=== PATIENT | male | born 1935 | race Caucasian/White ===

== ENCOUNTER 2019-08-12 09:17 | Observation (INO) | payer MEDICARE ==
--- NOTE | 2019-08-12 09:54 | ED ---
Shortness of Breath - HPI Summary HPI Summary: The pt is an 83 yr old [place] [facility] [place] and bilateral leg weakness beginning 2 days [employer]. He also mentions low O2 sat % and an increased heart rate. He notes that the shortness of breath began overnight and notes that he was lying in bed when it onset. He mentions that he has not felt these symptoms before. He is on blood thinners but does not take them often and he takes one baby aspirin every day. He rates his current pain severity a 0/10. No aggravating or alleviating factors noted. He also reports some weakness in his legs but denies any chest pain or dizziness. - History of Current Complaint Chief Complaint: EDShortnessOfBreath Time Seen by Provider: 08/12/19 09:32 Hx Obtained From: Patient, Family/Area Captain Onset/Duration: Sudden Onset, Lasting Days, Still Present Timing: Constant Current Severity: None Aggravating Factors: Nothing Alleviating Factors: Nothing Associated Signs & Symptoms: Negative - chest pain, dizziness - Allergy/Home Medications Allergies/Adverse Reactions: Allergies Allergy/AdvReac Type Severity Reaction Status Date / Time No Known Allergies Allergy Verified 08/12/19 09:27 Home Medications: Home Medications Aspirin 81 mg CHEW TAB* 81 mg PO DAILY 08/12/19 [History Confirmed 08/12/19] Atorvastatin Calcium [Lipitor] 40 mg PO DAILY 08/12/19 [History Confirmed ] Digoxin TAB* [Lanoxin TAB*] 0.125 mg PO DAILY 08/12/19 [History Confirmed ] Losartan Potassium [Cozaar] 50 mg PO BID 08/12/19 [History Confirmed 08/12/19] Magnesium Oxide [Magnesium] 250 mg PO DAILY 08/12/19 [History Confirmed 08/12/19 ] Metformin HCl [Metformin HCl ER] 500 mg PO DAILY 08/12/19 [History Confirmed ] Metoprolol Tartrate 25 mg PO BEDTIME 08/12/19 [History Confirmed 08/12/19] Metoprolol Tartrate 50 mg PO DAILY 08/12/19 [History Confirmed 08/12/19] Naproxen Sodium [Aleve] 220 mg PO DAILY 08/12/19 [History Confirmed 08/12/19] Potassium Chloride 20 meq PO DAILY 08/12/19 [History Confirmed 08/12/19] Warfarin Sodium 1 mg PO DAILY 08/12/19 [History Confirmed 08/12/19] Warfarin Sodium 3 mg PO SEE INSTRUCTIONS 08/12/19 [History Confirmed 08/12/19] PMH/Surg Hx/FS Hx/Imm Hx Sensory History: Denies: Hx Legally Blind, Hx Deafness Opthamlomology History: Denies: Hx Legally Blind EENT History: Denies: Hx Deafness - Surgical History Surgical History: None Surgery Procedure, Year, and Place: none Infectious Disease History: No Infectious Disease History: Denies: Traveled Outside the [place] in Last 30 Days - Family History Known Family History: Negative: Renal Disease Review of Systems Negative: Chest Pain Positive: Shortness Of Breath Neurological: Other - neg - dizziness Positive: Weakness - in legs All Other Systems Reviewed And Are Negative: Yes Physical Exam - Summary Physical Exam Summary: VITAL SIGNS: Reviewed. GENERAL: Patient is a well-developed and nourished male who is lying comfortable in the stretcher. Patient is not in any acute respiratory distress. HEAD AND FACE: No signs of trauma. No ecchymosis, hematomas or skull depressions. No sinus tenderness. EYES: PERRLA, EOMI x 2, No injected conjunctiva, no nystagmus. EARS: Hearing grossly intact. Ear canals and tympanic membranes are within normal limits. MOUTH: Oropharynx within normal limits. NECK: Supple, trachea is midline, no adenopathy, no JVD, no carotid bruit, no c- spine tenderness, neck with full ROM. CHEST: Symmetric, no tenderness at palpation. LUNGS: Crackles in both bases. CVS: Irregularly irregular rhythm, S1 and S2 present, no murmurs or gallops appreciated. ABDOMEN: Soft, non-tender. No signs of distention. No rebound, no guarding, and no masses palpated. Bowel sounds are normal. EXTREMITIES: FROM in all major joints, Bilateral lower extremity edema 1+, no cyanosis or clubbing. NEURO: Alert and oriented x 3. No acute neurological deficits. Speech is normal and follows commands. SKIN: Dry and warm. Triage Information Reviewed: Yes Vital Signs On Initial Exam: Initial Vitals Temp Pulse Resp BP Pulse Ox 97.5 F 93 18 149/101 92 08/12/19 09:24 08/12/19 09:24 08/12/19 09:24 08/12/19 09:24 08/12/19 09:24 Vital Signs Reviewed: Yes Procedures - Sedation Patient Received Moderate/Deep Sedation with Procedure: No Diagnostics - Vital Signs Vital Signs Temp Pulse Resp BP Pulse Ox 08/12/19 09:24 97.5 F 93 18 149/101 92 - Laboratory Result Diagrams: 08/13/19 04:47 08/13/19 04:47 Lab Statement: Any lab studies that have been ordered have been reviewed, and results considered in the medical decision making process. - Radiology CXR Radiology Interpretation Completed By: Radiologist Summary of Radiographic Findings: IMPRESSION: Cardiomegaly, interstitial edema and right pleural effusion suggestive of CHF. No prior study is available for comparison. - EKG 1021 Cardiac Rate: Other Rate - Afib EKG Rhythm: Atrial Fibrillation - 82 bpm Summary of EKG Findings: An EKG at 1021 reveals Afib @ 82 bpm and LBBB. Course/Dx - Course Assessment/Plan: This patient is a 83-year-old male who presents to the emergency department with a chief complaint of shortness of breath. Past medical history: Hypertension. Borderline diabetes. Dyslipidemia. Coronary artery disease. Patient is neurovascularly disease. Aortic stenosis. Valvular replacement on blood thinners. CXR impression: Cardiomegaly, interstitial edema and right pleural effusion suggestive of CHF. No prior study is available for comparison. Blood work without any significant abnormality except for a slight anemia, INR 2.86, glucose 166, alkaline phosphatase 112, troponin 0.04, CRP of 18.2, BNP 511. In the ED course the patient was given Lasix. I discuss my physical exam and test results with Dr. De La Rosa from the hospitalist services and he agrees to admit the patient to his services. The patient is hemodynamically stable alert and oriented x 3. - Diagnoses Provider Diagnoses: CHF (congestive heart failure), Elevated troponin, Chest pain, rule out acute myocardial infarction - Physician Notifications Discussed Care of Patient With: Tonia De La Rosa - Dr. De La Rosa will [place] the [place] [facility] [place] Time Discussed With Above Provider: 11:36 Discharge ED - Sign-Out/Discharge Documenting (check all that apply): Patient Departure - admit - Discharge Plan Condition: Stable Disposition: ADMITTED TO [facility] - Billing Disposition and Condition Condition: STABLE Disposition: Admitted to [facility] - Attestation Statements Document Initiated by Scribe: Yes Documenting Scribe: Clark Morgan Provider For Whom Scribe is Documenting (Include Credential): Maco Herr MD Scribe Attestation: I, Clark Morgan, scribed for Maco Herr MD on 08/15/19 at 0711. Scribe Documentation Reviewed: Yes Provider Attestation: The documentation as recorded by the scribe, Clark Morgan accurately reflects the service I personally performed and the decisions made by me, Maco Herr MD Status of Scribe Document: Viewed
[2019-08-12 10:55] LABS: ABS Eosinophils 0.1 10^3/ul (0-0.6); ABS Lymphocytes 0.6 10^3/ul (1.0-4.8); ABS Monocytes 0.9 10^3/ul (0-0.8); ABS Neutrophils 6.6 10^3/ul (1.5-7.7); Eosinophil % 0.7 %; Hematocrit 36 % (42-52); Hemoglobin 12.1 g/dL (14.0-18.0); Lymphocyte % 7.6 %; Mean Corpuscular HGB Conc 33 g/dL (31-36); Mean Corpuscular Hemoglobin 32 pg (27-31); Mean Corpuscular Volume 95 fL (80-94); Platelet Count 152 10^3/uL (150-450); Red Blood Count 3.84 10^6 /uL (4.18-5.48); Red Cell Distribution Width 15 % (10-15); White Blood Count 8.2 10^3/uL (3.5-10.8)
[2019-08-12 11:02] LABS: INR 2.86 (0.82-1.09)
[2019-08-12 11:12] LABS: ALT 33 U/L (7-52); AST 32 U/L (13-39); Albumin 3.5 g/dL (3.2-5.2); Albumin/Globulin Ratio 1.2 (1-3); Alkaline Phosphatase 112 U/L (34-104); Anion Gap 7 mmol/L (2-11); Blood Urea Nitrogen 19 mg/dL (6-24); C Reactive Protein 18.25 mg/L (<8.01); CO2 Carbon Dioxide 25 mmol/L (22-32); Calcium 9.3 mg/dL (8.6-10.3); Chloride 105 mmol/L (101-111); Creatine Kinase 46 U/L (10-223); EGFR African American 86.1 (>60); EGFR Non-African American 71.2 (>60); Glucose 166 mg/dL (70-100); Potassium 4.5 mmol/L (3.5-5.0); Sodium 137 mmol/L (135-145); Total Protein 6.5 g/dL (6.4-8.9)
[2019-08-12 11:16] LABS: CKMB ng/mL 1.8 ng/mL (0.6-6.3); Troponin I 0.04 ng/mL (<0.03)
[2019-08-12] MEDS ORDERED: Furosemide IV* 10 MG/ML 2 ML VIAL (20 MG) IV ONE (11:42)
[2019-08-12] MEDS ORDERED: Acetaminophen TAB* 325 MG PO PRN (12:24)
[2019-08-12] MEDS ORDERED: Al Hydrox/Mg Hydrox/Simet LIQ* 30 ML UDC PO PRN (12:24)
[2019-08-12] MEDS ORDERED: Warfarin TAB(*) 3 MG PO ONE (12:29)
[2019-08-12] MEDS ORDERED: Dextrose 50% VIAL 50 ml IV PUSH PRN (12:30)
[2019-08-12 14:29] LABS: Troponin I 0.05 ng/mL (<0.03)
--- NOTE | 2019-08-12 14:56 | HP ---
CC: Dr. Sona Arora, [place], [place] * HISTORY AND PHYSICAL: DATE OF ADMISSION: 08/12/19 PROVIDER: Yani Miller NP PRIMARY CARE PROVIDER: Dr. Sona Arora in [place], [place], phone number is [phone]. ATTENDING PHYSICIAN WHILE IN THE HOSPITAL: Dr. Tonia De La Rosa * (dictated by Yani Miller NP). CHIEF COMPLAINT: Shortness of breath. HISTORY OF PRESENT ILLNESS: Mr. Barnett is an 83-year-old male with a past medical history significant for enlarged heart, aortic valve replacement, history of diabetes, hyperlipidemia, hypertension, atrial fibrillation and glaucoma, who presented to the emergency room with complaints of progressively worsening shortness of breath. The patient does report that he flew here from [facility] and arrived on Friday. The patient reports that he was feeling off on Friday. He reports that last night his shortness of breath became progressively worse during the night. He does report that he was sleeping propped up on pillows, but no more than normal. He also reports increased swelling in his lower extremities. The patient does report that he stopped taking Lasix approximately 5 weeks ago on his own as he was traveling a lot and had to make too many frequent stops, so he stopped taking his Lasix. He does report that his primary care provider was aware of him stopping his Lasix dosing. He denies any fever, chills, or unintended weight loss. Denies any chest pain. He does report mild lower extremity edema. Denies any cough, hemoptysis. He does report shortness of breath, but denies any nocturnal dyspnea. Denies any nausea, vomiting, diarrhea, abdominal pain, hematuria, dysuria. Denies any focal weakness, visual complaints, dysphagia, arthralgias, myalgias, rashes, lesions, open sores, psychosis, or anxiety. While in the emergency room, the patient had routine lab work drawn. He was found to have a BNP of 511. He had a mildly elevated troponin at 0.04, elevated C- reactive protein of 18.25, and a chest x-ray that was consistent with congestive heart failure. Due to these findings, Hospital Medicine was asked to see and evaluate the patient for admission. PAST MEDICAL HISTORY: Significant for: 1. Enlarged heart. 2. 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 3. History of mitral valve surgery for benign lesion. 4. Diabetes type 2. 5. Hyperlipidemia. 6. Hypertension. 7. History of basal cell carcinoma removed from his left arm. 8. Atrial fibrillation. 9. Glaucoma. PAST SURGICAL HISTORY: 1. Mitral valve surgery for benign lesion removal. 2. Quadriceps tendon repair. 3. 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 4. Tonsillectomy. 5. Basal cell carcinoma removed from his left arm. HOME MEDICATIONS: Include: 1. Metformin 500 mg p.o. daily. 2. Atorvastatin 40 mg p.o. daily. 3. Digoxin 0.125 mg p.o. daily. 4. Furosemide 20 mg p.o. daily - has not taken in 5 weeks. 5. Losartan 50 mg p.o. b.i.d. 6. Potassium 20 mEq p.o. daily. 7. Coumadin 4 mg Friday, Friday and Friday, 3 mg Friday, Friday, , Friday. 8. Aspirin 81 mg p.o. daily. 9. Magnesium 250 mg p.o. daily. 10. Metoprolol tartrate 50 mg in the morning, 25 mg in p.m. FAMILY HISTORY: Father at the age of 55 due to an GA. Brother with a stroke and passed at the age of 82. No reported history of diabetes or cancer within the family. SOCIAL HISTORY: The patient reports that he quit smoking at the age of 26. Prior to that, he smoked a pack a day for approximately 10 years. He does report daily alcohol use of 4 ounces of whiskey daily. Denies any illicit drug use. He lives alone. He does have a house here in [place] which he will be residing in for the next couple months. Most of the time, he lives in the [facility]. Surrogate decision makers in the event he is unable to make his own decisions are his children. He is a full code. REVIEW OF SYSTEMS: A 14-point review of systems was completed. All pertinent positives were mentioned in the HPI. PHYSICAL EXAMINATION GENERAL: At this time, Mr. Barnett is an 83-year-old male. He is alert and oriented, resting on the stretcher in the emergency room. He is in no acute distress. VITAL SIGNS: Blood pressure 167/88, heart rate 90, respirations 19, O2 saturation 97%, temperature was 98.1. HEENT: Head is atraumatic, normocephalic. Eyes: EOMs are intact. Sclerae anicteric and not pale. Oral mucosa appeared to be moist. NECK: Supple. LUNGS: Diminished in the bases bilaterally with fine crackles. CARDIAC: S1, S2. He does have irregular rate with a click. No rubs or gallops. ABDOMEN: Soft and nontender. Bowel sounds are present x4. EXTREMITIES: He is able to move all 4 extremities. There is no clubbing or cyanosis. He does have +1 pitting edema to bilateral lower extremities. NEUROLOGIC: He is awake, alert, oriented x3. Speech is clear. Thought process is intact. There are no gross focal deficits. DIAGNOSTIC STUDIES/LAB DATA: WBCs are 8.2, RBCs 3.84, hemoglobin 12.1, hematocrit is 36, platelet count 152. INR 2.86. ABG; pH was 7.41, pCO2 was 34 , pO2 was 70, HCO3 was 22.9, O2 saturation 95.9%. Sodium 137, potassium 4.5, chloride 105, carbon dioxide was 25, anion gap of 7, BUN was 19, creatinine 1.00 , glucose was 166, lactic acid 1.4, calcium 9.3. ASTs were 32, ALTs were 33, alkaline phosphatase was 112. Troponin was 0.04, C-reactive protein was 18.25, BNP was 511, and digoxin level was 1.0. He did have a chest x-ray, radiologist's impression: Cardiomegaly, interstitial edema, right pleural effusion suggestive of congestive heart failure. He also had an electrocardiogram, which showed atrial fibrillation with left bundle branch block at a rate of 97. He does have T-wave inversions in I, II, III, V4, V5; peaked Ts in V1, V2, V3. There is no comparison EKG to compare. IMPRESSION AND PLAN: Mr. Barnett is an 83-year-old male with a past medical history significant for atrial fibrillation, status post aortic valve replacement; diabetes; hypertension; hyperlipidemia; and glaucoma, who presented to the emergency room with complaints of shortness of breath, found to have congestive heart failure. Our recommendations are as follows: 1. Shortness of breath. I suspect this is related to underlying congestive heart failure. Patient does report that he stopped taking his Lasix 5 weeks ago due to frequency of urination and travel. I will get a transthoracic echocardiogram. We will monitor him on telemetry overnight. He did receive Lasix 20 mg in the emergency room IV. We will give him another dose of Lasix this evening and and continue him on Lasix IV BID.. We will place him on daily weights and strict I's and O's. We will need to obtain records from his hot dip galvanizer in [place], Dr. Shashi Riley, his phone number is [phone], for comparisons of his echo and Ekg .unable to obtain record today due to holiday. Due to the patient recent travel here from [facility], pulmonary embolism was considered but I believe that this is low on the differential as the patient denies calf tenderness, pain with deep breath and is currently is on Coumadin with a therapeutic INR, who also recently stopped taking his Lasix. If his echo shows a significantly reduced ejection fraction i would consult cardiology. 2. Hypertension. He should continue on losartan and metoprolol as previously prescribed. 3. Hyperlipidemia. He should continue on atorvastatin as previously prescribed., 4. Elevated troponin. I suspect due to this is related to demand ischemia, due to his underlying congestive heart failure. We will continue to trend his troponins. We will monitor him on telemetry. The patient denies any chest pain during his episode. He is currently chest pain-free at this time. We will continue to monitor him for any episodes of chest pain. We will need to obtain old record from his hot dip galvanizer in [facility] Dr. Shashi Riley - [phone]. and Primary care doctor Sona Arora [phone]. Patient does have Afib with LBBB noted on today's EKG. No reports of chest pain, weakness or diaphoresis. Will continue with Coumadin, Aspirin, metoprolol and atorvastatin. repeat EKG in the AM. Should the patient develop chest pain will consult cardiology. 5. Diabetes Type II. I will place him on fingersticks a.c. with lispro sliding scale. We will hold his metformin. 6. Atrial fibrillation. The patient will continue on metoprolol as previously prescribed and digoxin. We will also continue on Coumadin alternating 3 and 4 mg as ordered. 7. FEN: He can have a heart-healthy, caffeine okay diet. 8. Code status: He is a full code. 9. DVT prophylaxis: He is on Coumadin with therapeutic INR. TIME SPENT: Time spent on this admission was 60 minutes, greater than half that time was spent at the bedside reviewing events leading thus far to his hospitalization, performing physical exam, and reviewing my plan of care. I have discussed this with my attending, Dr. Tonia De La Rosa; she is in agreement with my plan. YANI MILLER, [employer] [id number]/CPS #: [id number] DINORAH
[2019-08-12 16:24] LABS: Urine Appearance Clear; Urine Bilirubin Negative (Negative); Urine Blood 1+ (Negative); Urine Color Straw; Urine Glucose Negative (Negative); Urine Ketones Negative (Negative); Urine Nitrite Negative (Negative); Urine Protein Negative (Negative); Urine Specific Gravity 1.006 (1.010-1.030); Urine Urobilinogen Negative (Negative)
[2019-08-12 16:26] LABS: Urine Bacteria Absent (Absent); Urine Red Blood Cell Trace(0-2/hpf) (Absent); Urine White Blood Cell Absent (Absent)
[2019-08-12] MEDS: Insulin LISPRO* 1 UNITS UNIT SUBCUT SCH (16:59)
[2019-08-12] MEDS ORDERED: Warfarin TAB(*) 3 MG PO SCH (17:00)
[2019-08-12 17:12] LABS: Troponin I 0.05 ng/mL (<0.03)
[2019-08-12] MEDS ORDERED: Furosemide IV* 10 MG/ML VIAL (40 MG) IV SCH (18:00)
[2019-08-12] MEDS: Losartan TAB* 25 MG PO SCH (19:50)
[2019-08-12] MEDS ORDERED: Metoprolol Tartrate TAB* 25 MG PO SCH (21:00)
[2019-08-13 04:53] LABS: ABS Eosinophils 0.1 10^3/ul (0-0.6); ABS Lymphocytes 1.2 10^3/ul (1.0-4.8); ABS Neutrophils 4.7 10^3/ul (1.5-7.7); Eosinophil % 1.5 %; Hematocrit 33 % (42-52); Lymphocyte % 16.6 %; Mean Corpuscular HGB Conc 34 g/dL (31-36); Mean Corpuscular Hemoglobin 31 pg (27-31); Mean Corpuscular Volume 93 fL (80-94); Mean Platelet Volume 7.4 fL (7.4-10.4); Nucleated Red Blood Cells % 0.1; Platelet Count 138 10^3/uL (150-450); Red Blood Count 3.51 10^6 /uL (4.18-5.48); Red Cell Distribution Width 15 % (10-15)
[2019-08-13 04:59] LABS: INR 2.6 (0.82-1.09)
[2019-08-13 05:13] LABS: BUN/Creatinine Ratio 18.7 (8-20); Calcium 8.7 mg/dL (8.6-10.3); EGFR Non-African American 79.4 (>60); HDL Cholesterol 34.4 mg/dL; Potassium 3.8 mmol/L (3.5-5.0)
[2019-08-13] MEDS ORDERED: Furosemide IV* 10 MG/ML VIAL (40 MG) IV SCH ×2 (06:00→09:00)
[2019-08-13] MEDS ORDERED: Atorvastatin* 40 MG TAB PO SCH (09:00)
[2019-08-13] MEDS ORDERED: Aspirin 81 mg CHEW TAB* 81 MG TAB.CHEW PO SCH (09:00)
[2019-08-13] MEDS ORDERED: Potassium Chlor TAB* 20 MEQ TAB.ER PO SCH (09:00)
[2019-08-13] MEDS ORDERED: Digoxin TAB* 0.125 MG PO SCH (09:00)
[2019-08-13] MEDS ORDERED: Metoprolol Tartrate TAB* 50 mg PO SCH (09:00)
[2019-08-13] MEDS: Losartan TAB* 25 MG PO SCH (09:06)
[2019-08-13] MEDS: Insulin LISPRO* 1 UNITS UNIT SUBCUT SCH (09:07)
[2019-08-13 09:13] VITALS: BP 143/69
--- NOTE | 2019-08-13 10:28 | ECHO ---
*[facility]* [place] [address] Fax #: [phone] Transthoracic Echocardiogram Patient: Hamilton Barnett : 1935 Study Date: 08/13/2019 Age: 83 Gender: M HR: 70 bpm Height: 70 in /177.8 cm BSA: 2.04 m^2 Weight: 188.6 lb /85.7 kg BMI: 27.1 kg/m^2 *Energy Conservation Director: * Dena Zamora RDCS RN *Referring Physician: * Yani Miller *Reading Physician: * Michael Sanchez MD Indications: Congestive Heart Failure. SOB. Edema. History: Coronary artery disease. Aortic stenosis. Risk factors: Hypertension. Diabetes mellitus. Dyslipidemia. Labs, prior tests, procedures, and surgery: Aortic valve replacement with a St[employer] Narciso mechanical valve. Removal of benign lesion from mitral valve. Conclusions Summary: - Left ventricle: The cavity size is normal. Wall thickness is mildly to moderately increased. Systolic function is normal. The estimated ejection fraction is 50-55%. Wall motion is normal; there are no regional wall motion abnormalities.Intermittent distal apico-septal paradoxical wall motion is seen which may be related to LBBB and/or prior cardiac surgery. - Left atrium: The atrium is moderately to severely dilated. - Right atrium: The atrium is moderately to severely dilated. - Aortic valve: There is a normally functioning mechanical aortic prosthetic valve. - There is no prior echocardiogram available to compare with at this time. Study data: Transthoracic echocardiogram. Procedure: Transthoracic echocardiography was performed. Image quality was fair. Complete 2D, spectral Doppler, and color flow Doppler. Location: Bedside. Patient status: Observation. Patient room number: 438. Rhythm: Atrial fibrillation. LBBB. Findings Left ventricle: The cavity size is normal. Wall thickness is mildly to moderately increased. Systolic function is normal. The estimated ejection fraction is 50-55%. Wall motion is normal; there are no regional wall motion abnormalities.Intermittent distal apico-septal paradoxical wall motion is seen which may be related to LBBB and/or prior cardiac surgery. Left ventricular diastolic function parameters are indeterminate. Right ventricle: The cavity size is normal. Systolic function is normal. Ventricular septum: Ventricular septal wall motion has a postoperative appearance. The interventricular septum appears dyssynchronous in the presence of LBBB. Left atrium: The atrium is moderately to severely dilated. Right atrium: The atrium is moderately to severely dilated. Mitral valve: The mitral valve annulus appears calcified with prominent focal posterior calcification. The leaflets are mildly thickened. There is no evidence of stenosis. There is mild to moderate regurgitation. Aortic valve: Not well visualized. There is a normally functioning mechanical aortic prosthetic valve. There is trace regurgitation and no significant stenosis. There is trace to mild regurgitation. Tricuspid valve: Not well visualized. There is trace to mild regurgitation. Pulmonic valve: The valve is structurally normal. There is no evidence of stenosis. There is no significant regurgitation. Aorta: Aortic root: The aortic root is not dilated. Ascending aorta: The ascending aorta is not dilated. Pericardium: There is no pericardial effusion. Pulmonary arteries: Not well visualized. Systolic pressure can not be accurately estimated. Systemic veins: Inferior vena cava: The vessel is normal in size. There is (>= 50%) respiratory change in the IVC dimension. Measurements Left ventricle Value Ref Right atrium Value Ref BANDAR, LAX 4.6 cm 4.2 - 5.8 ML dim, ES, A4C (H) 4.7 cm 2.6 - 4.4 ESD, LAX 3.4 cm 2.5 - 4.0 SI dim, ES, A4C (H) 6.3 cm 3.4 - 5.3 FS, LAX 25 % 25 - 43 SI dim/bsa, ES, A4C (H) 3.1 cm/m^2 1.8 - 3.0 PW, ED, LAX (H) 1.2 cm 0.6 - 1.0 Estimated RAP 3 mm Hg --------- PW, ED (H) 1.2 cm 0.6 - 1.0 IVS/PW, ED 1.21 Aortic valve Value Ref E', lat brody, TDI 11.6 cm/sec >=10.0 Brody diam, ED 2.0 cm - -------- E/e', lat brody, 13 Brody diam/bsa, ED 1.0 cm/m^2 ---- ----- TDI Peak v, S 2.43 m/sec --------- E', med brody, TDI (L) 4.6 cm/sec >=7.0 VTI, S 43.0 cm - -------- E/e', med brody, 32 Mean grad, S 19.0 mm Hg ---- ----- TDI Peak grad, S 24.0 mm Hg --------- E', avg, TDI 8.1 cm/sec LVOT/AV, VTI ratio 0.32 ---- ----- E/e', avg, TDI (H) 18 <=14 LOLA, VTI 1.00 cm^2 - -------- LOLA, Vmax 1.11 cm^2 --------- LVOT Value Ref Diam, S 2.00 cm Mitral valve Value Ref Area 3.1 cm^2 Peak E 1.49 m/sec --------- Peak lashell, S 0.86 m/sec Decel time 227 ms --------- VTI, S 13.7 cm PHT 31 ms --------- Mean grad, S 2 mm Hg Mean grad, D 3.0 mm Hg --------- SV 43 ml Peak grad, D 10.0 mm Hg --------- SV/bsa 21 ml/m^2 MVA, PHT 3.0 cm^2 --------- Ventricular septum Value Ref Pulmonic valve Value Ref IVS, ED (H) 1.5 cm 0.6 - 1.0 Peak v, S 0.86 m/sec --------- Peak grad, S 3.0 mm Hg --------- Right ventricle Value Ref BANDAR, LAX 2.7 cm Aortic root Value Ref BANDAR minor ax, 3.1 cm 1.9 - 3.5 Root diam 2.9 cm <4.2 A4C mid Ascending aorta Value Ref Left atrium Value Ref AAo AP diam, S 2.7 cm --------- AP dim, ES (H) 4.10 cm 3.00 - 4.00 Inferior vena cava Value Ref ML dim, A4C 4.8 cm Diam 1.7 cm --------- SI dim, A4C 6.5 cm Vol/bsa, ES, 1-p (H) 43 ml/m^2 12 - 37 A4C Vol/bsa, ES, A/L (H) 69 ml/m^2 16 - 34 Legend: (L) and (H) lia values outside specified reference range. Prepared and electronically signed by Michael Sanchez MD 08/13/2019 10:28
[2019-08-13] MEDS ORDERED: Warfarin TAB(*) 1 MG PO SCH (17:00)
--- NOTE | 2019-08-13 18:20 | DS ---
CC: Dr. Sona Arora, [place], [place], phone number [phone]; [facility] * CC: Dr. Shashi Riley, [place], phone number [phone] * DISCHARGE SUMMARY: DATE OF ADMISSION: 08/12/19 DATE OF DISCHARGE: 08/13/19 ATTENDING PROVIDER: Pramod Guerrero MD * (DICTATED BY FABIOLA DOBBINS) PRIMARY CARE PROVIDER: Dr. Sona Arora in [place], [place], phone number [phone]. PRIMARY DISCHARGE DIAGNOSIS: Heart failure with preserved ejection fraction exacerbation. SECONDARY DISCHARGE DIAGNOSES: 1. Atrial fibrillation. 2. Hypertension. 3. Hyperlipidemia. 4. History of aortic valve replacement. 5. Diabetes mellitus type 2. 6. Glaucoma. 7. History of basal cell carcinoma. STUDIES DONE WHILE IN THE HOSPITAL: Chest x-ray from 08/12/19 read as cardiomegaly, interstitial edema, right pleural effusion consistent with CHF. Transthoracic echocardiogram read as left ventricular chamber size is normal. Wall thickness is mild to moderately increased. Systolic function is normal. Estimated ejection fraction is 50% to 55%. Intermittent distal apical septal paradoxical wall motion is seen, which may be related to left bundle branch block or prior cardiac surgery. Left atrium and right atrium are moderately to severely dilated. Aortic valve is a normally functioning mechanical aortic valve. Right ventricular systolic and pulmonary artery pressures are within normal limits. Electrocardiogram shows left bundle branch block. No ST segment elevation or depression. No hypertrophy or enlargement. Atrial fibrillation, rate of 88, QTc of 453. Two repeat EKGs showed no significant changes. MEDICATIONS AT DISCHARGE: 1. Digoxin 0.125 mg p.o. daily. 2. Warfarin 3 mg p.o. Friday, Friday, , Friday. 3. Warfarin 4 mg p.o. Friday, Friday, Friday. 4. Potassium chloride 20 mEq p.o. daily. 5. Naproxen 220 mg p.o. daily. 6. Metoprolol tartrate 50 mg p.o. daily. 7. Metformin 500 mg p.o. daily. 8. Magnesium oxide 250 mg p.o. daily. 9. Losartan 50 mg p.o. b.i.d. 10. Atorvastatin 40 mg p.o. daily. 11. Aspirin 81 mg p.o. daily. 12. Metoprolol tartrate 25 mg p.o. at bedtime. 13. Torsemide 10 mg p.o. daily. New medication at discharge: Torsemide 10 mg p.o. daily. Medication discontinued at discharge: Furosemide 20 mg p.o. daily. HOSPITAL COURSE: This is a brief summary of the patient's presentation. For more details, please see the history and physical from Yani Miller NP, on 08/12/19. In brief, the patient is an 83-year-old male with past medical history significant for the above, who follows routinely with a vehicle safety inspector and primary care doctor in [facility], but recently flew 5 days ago from [facility] and had stopped his diuretics approximately 3 weeks ago due to frequent urination which was bothersome to him. The patient began to have 2 days prior to admission worsening shortness of breath and feeling of being off. He also had increased swelling in his legs. The patient in the emergency department had studies as above showing concern for CHF. He also had a slightly elevated troponin, a significantly elevated BNP at 511. There was no concern that the patient was having an acute coronary syndrome. He was diagnosed with acute CHF exacerbation and was admitted to the hospital. The patient was diuresed with IV Lasix. The patient only put out approximately 1 L of urine. However, he was initially requiring 3 L of oxygen to keep his oxygen saturation above 90% and this was able to be weaned off on the first day of his hospitalization. The patient had a transthoracic echocardiogram as above, which was consistent with the patient's understanding of what his echocardiogram looked like, although there were no previous records to be compared. The patient's troponin peaked at 0.05 and remained stable there. The patient had a lipid profile, which showed LDL cholesterol of 73 and was already on high-intensity statin therapy. The patient's heart rate was well controlled while in the hospital on his current medications of digoxin and metoprolol. The patient felt much better on the second day of hospitalization, was able to ambulate around the unit without any oxygen, felt as if the swelling has likely decreased and was stable, anxious and amenable for discharge on 08/13/19. PHYSICAL EXAM ON THE DAY OF DISCHARGE: General: The patient is an 83-year-old male, who appears stated age and sitting comfortably in bed, in no acute distress. Vital Signs: At the time of evaluation, temperature 98.6, pulse rate 65, respiratory rate 18, oxygen saturation 97% on room air, blood pressure 143/ 69. HEENT: Head normocephalic, atraumatic. Sclerae anicteric. No conjunctival injection. Nasal mucosa moist. Oral mucosa moist. No pharyngeal erythema, discharge, or exudate. Neck: Supple, nontender. No lymphadenopathy. No carotid bruits auscultated. No JVD. Cardiac: Irregularly irregular rhythm. Grade 3/6 systolic ejection murmur heard in the right upper sternal border. No other adventitious breath sounds. Pulses are 2 + in the bilateral dorsalis pedis, posterior tibialis, and radial areas. 1+ pitting edema in the left lower extremity, 2+ in the right lower extremity. No bilateral calf tenderness or palpable cords. Respiratory: Clear to auscultation bilaterally. No wheezes, rales, or rhonchi. Good air exchange. Abdomen: Soft, nontender, nondistended. Bowel sounds present and normoactive in all 4 quadrants. No hepatosplenomegaly. No abdominal bruits auscultated. No hepatojugular reflux. Genitourinary: No suprapubic or CVA tenderness. Skin : Clean, dry, and intact. No rash. Neuro: Cranial nerves II through XII intact. No focal deficits. Alert and oriented x3. Psychiatric: Pleasant and cooperative. DISCHARGE PLAN BY PROBLEM: 1. Acute on chronic heart failure with preserved ejection fraction. The patient had a mild CHF exacerbation and was admitted to the hospital, received 3 doses of IV Lasix and felt as if he had returned to his baseline. The patient will be continued on his previous dose of oral diuretic; however, the patient will be transitioned from Lasix to torsemide due to longer half-life may cause less upfront urinary frequency than Lasix does; however, this should be reassessed with his primary care provider and if this does not improve his symptoms, other strategies should be pursued if possible. The patient's EF was 50% to 55% on his echocardiogram and his valve appears to be functioning well. The patient should follow routinely with his vehicle safety inspector for this. The patient should return to the hospital for severe shortness of breath, chest pain , passing out, or other alarming symptoms. 2. Atrial fibrillation. The patient is currently rate controlled on digoxin and metoprolol. The patient will be continued on these medications. The patient is currently therapeutic on his Coumadin. 3. Hyperlipidemia. Continue the patient's Lipitor. The patient's LDL is currently 73. Continue the patient's aspirin for primary prevention. 4. Hypertension. Continue the patient's metoprolol, losartan, torsemide. CONDITION: Stable. DIET: Heart-healthy, caffeine okay. ACTIVITY: As tolerated. DISPOSITION: Home. TIME SPENT: Approximately 60 minutes was spent on the discharge of this patient , 30 of which was spent [id number] with the patient obtaining history and physical and discussing treatment plan. FABIOLA DOBBINS [id number]/[facility] #: [id number] DINORAH
== END 2019-08-13 11:59 | disposition home or self-care (01) ==
LOC: ED 09:17 → MEDTELE 12:24
PROVIDERS: ADMIT Internal Medicine; ATTEND Internal Medicine
DX: I11.0 Hypertensive heart disease with heart failure (principal); I50.30 Unspecified diastolic (congestive) heart failure; I48.91 Unspecified atrial fibrillation; E78.5 Hyperlipidemia, unspecified; Z95.4 Presence of other heart-valve replacement; E11.9 Type 2 diabetes mellitus without complications; H40.9 Unspecified glaucoma; Z85.828 Personal history of other malignant neoplasm of skin; Z79.899 Other long term (current) drug therapy; Z79.01 Long term (current) use of anticoagulants; Z79.82 Long term (current) use of aspirin; R06.02 Shortness of breath; Z87.891 Personal history of nicotine dependence
CPT/HCPCS: 36415; 71046; 80048; 80053; 80061; 80162; 81003; 81015; 82550; 82553; 82803; 83605; 83880; 84484; 85025; 85610; 85730; 86140; 87040; 93005; 93306; 96374; 96376; 99284; A9270-GY; G0378; J1940

== ENCOUNTER 2021-02-08 10:11 | Inpatient (IN) ==
[2021-02-08] MEDS ORDERED: Famotidine IV 10 MG/ML 2 ml VIAL (20 mg) IV SLOW PU ONE (10:56)
[2021-02-08 11:53] LABS: ABS Lymphocytes 0.5 10^3/ul (1.0-4.8); ABS Monocytes 1.1 10^3/ul (0-0.8); ABS Neutrophils 13.2 10^3/ul (1.5-7.7); Hematocrit 46 % (42-52); Hemoglobin 14.6 g/dL (14.0-18.0); Lymphocyte % 3.7 %; Mean Corpuscular HGB Conc 32 g/dL (31-36); Mean Corpuscular Hemoglobin 31 pg (27-31); Mean Corpuscular Volume 98 fL (80-94); Mean Platelet Volume 9.8 fL (7.4-10.4); Platelet Count 138 10^3/uL (150-450); Red Blood Count 4.67 10^6 /uL (4.18-5.48); Red Cell Distribution Width 17 % (10-15); White Blood Count 14.9 10^3/uL (3.5-10.8)
[2021-02-08 12:04] LABS: Activated Partial Thrombo Time 37.2 seconds (26.0-38.0); INR 3.71 (0.82-1.09)
[2021-02-08 12:11] LABS: ALT 55 U/L (7-52); AST 53 U/L (13-39); Albumin/Globulin Ratio 1.3 (1-3); Alkaline Phosphatase 147 U/L (35-149); Anion Gap 10 mmol/L (2-11); Blood Urea Nitrogen 65 mg/dL (6-24); CO2 Carbon Dioxide 25 mmol/L (22-32); Calcium 9.9 mg/dL (8.6-10.3); Chloride 104 mmol/L (101-111); Creatine Kinase 281 U/L (10-223); EGFR African American 49.1 (>60); EGFR Non-African American 40.6 (>60); Glucose 159 mg/dL (70-100); Magnesium 2.7 mg/dL (1.9-2.7); Sodium 139 mmol/L (135-145)
[2021-02-08 12:14] LABS: Troponin I 0.08 ng/mL (<0.03)
[2021-02-08 12:49] LABS: TSH Ultra Thyroid Stim Horm 2.93 mcIU/mL (0.34-5.60)
[2021-02-08] MEDS ORDERED: Ondansetron 4 mg VIAL 2 MG/ML 2 ml VIAL IV PRN (14:10)
[2021-02-08] MEDS ORDERED: Al Hydrox/Mg Hydrox/Simet LIQ 30 ML UDC PO PRN (14:10)
[2021-02-08] MEDS ORDERED: Warfarin per PHARMACY **NOTE FOLLOW UP SCH (15:00)
[2021-02-08] MEDS ORDERED: Warfarin - No Order Today **NOTE FOLLOW UP ONE (16:00)
[2021-02-08] MEDS: Empaglifozin 10 mg TAB (NF) PO SCH (19:33)
[2021-02-08 20:41] LABS: Troponin I 0.13 ng/mL (<0.03)
[2021-02-08] MEDS ORDERED: Lorazepam PYXIS KEY PRN (23:24)
[2021-02-09 02:31] LABS: Troponin I 0.13 ng/mL (<0.03)
[2021-02-09 05:36] LABS: ABS Lymphocytes 0.9 10^3/ul (1.0-4.8); ABS Monocytes 0.8 10^3/ul (0-0.8); ABS Neutrophils 7.7 10^3/ul (1.5-7.7); Hematocrit 42 % (42-52); Hemoglobin 13.6 g/dL (14.0-18.0); Lymphocyte % 9.7 %; Mean Corpuscular HGB Conc 33 g/dL (31-36); Mean Corpuscular Hemoglobin 32 pg (27-31); Mean Corpuscular Volume 97 fL (80-94); Mean Platelet Volume 10.1 fL (7.4-10.4); Nucleated Red Blood Cells % 0.1; Platelet Count 113 10^3/uL (150-450); Red Blood Count 4.29 10^6 /uL (4.18-5.48); Red Cell Distribution Width 17 % (10-15); White Blood Count 9.4 10^3/uL (3.5-10.8)
[2021-02-09 05:48] LABS: INR 3.91 (0.82-1.09)
[2021-02-09] MEDS: Cholecalciferol (VIT D3) 1,000 unit TAB PO SCH (08:58)
[2021-02-09] MEDS: Empaglifozin 10 mg TAB (NF) PO SCH (08:59)
[2021-02-09 12:02] LABS: Hematocrit 42 % (42-52); Hemoglobin 13.8 g/dL (14.0-18.0); Mean Corpuscular HGB Conc 33 g/dL (31-36); Mean Corpuscular Hemoglobin 32 pg (27-31); Mean Corpuscular Volume 96 fL (80-94); Mean Platelet Volume 10.1 fL (7.4-10.4); Platelet Count 125 10^3/uL (150-450); Red Blood Count 4.35 10^6 /uL (4.18-5.48); Red Cell Distribution Width 17 % (10-15); White Blood Count 10.4 10^3/uL (3.5-10.8)
[2021-02-09 12:23] LABS: Anion Gap 9 mmol/L (2-11); CO2 Carbon Dioxide 23 mmol/L (22-32); Calcium 9.3 mg/dL (8.6-10.3); Chloride 105 mmol/L (101-111); Potassium 4.9 mmol/L (3.5-5.0); Sodium 137 mmol/L (135-145)
[2021-02-09 12:29] LABS: Blood Urea Nitrogen 65 mg/dL (6-24); EGFR African American 49.8 (>60); EGFR Non-African American 41.2 (>60); Glucose 202 mg/dL (70-100)
[2021-02-09 12:51] LABS: Troponin I 0.12 ng/mL (<0.03)
[2021-02-09] MEDS ORDERED: Thiamine 100 MG/ML 2 ml VIAL 100 MG, Folic Acid IV 1 MG, Multiple Vitamin IV ADULT 10 M... IV ONE (16:00)
[2021-02-09] MEDS ORDERED: Warfarin - No Order Today **NOTE FOLLOW UP ONE (17:00)
[2021-02-09] MEDS ORDERED: Furosemide 20 mg/2 ml IV VIAL IV ONE (19:11)
[2021-02-09 23:06] LABS: Urine Appearance Clear; Urine Bilirubin Negative (Negative); Urine Blood 1+ (Negative); Urine Color Yellow; Urine Glucose 3+(>=500 mg/dL) (Negative); Urine Ketones Negative (Negative); Urine Nitrite Negative (Negative); Urine Protein 2+(100 mg/dL) (Negative); Urine Urobilinogen Negative (Negative)
[2021-02-09 23:16] LABS: Urine Bacteria Absent (Absent); Urine Red Blood Cell Trace(0-2/hpf) (Absent); Urine Squamous Epithelial Cell Present (Absent); Urine White Blood Cell Trace(0-5/hpf) (Absent)
[2021-02-09] MEDS: LORazepam 2 mg VIAL 1 ml IV PUSH PRN (23:37)
[2021-02-10] MEDS: LORazepam 2 mg VIAL 1 ml IV PUSH PRN (05:58)
[2021-02-10 06:34] LABS: Hematocrit 43 % (42-52); Hemoglobin 14.1 g/dL (14.0-18.0); Mean Corpuscular HGB Conc 33 g/dL (31-36); Mean Corpuscular Hemoglobin 32 pg (27-31); Mean Corpuscular Volume 97 fL (80-94); Mean Platelet Volume 10.9 fL (7.4-10.4); Platelet Count 119 10^3/uL (150-450); Red Blood Count 4.45 10^6 /uL (4.18-5.48); Red Cell Distribution Width 17 % (10-15); White Blood Count 10.1 10^3/uL (3.5-10.8)
[2021-02-10 06:35] LABS: INR 3.85 (0.82-1.09)
[2021-02-10 06:49] LABS: Calcium 9.3 mg/dL (8.6-10.3); EGFR African American 43.5 (>60); Potassium 4.6 mmol/L (3.5-5.0)
[2021-02-10] MEDS ORDERED: Furosemide 40 mg/4 ml IV VIAL IV ONE (09:01)
[2021-02-10] MEDS: Multivitamins/Minerals TAB PO SCH (10:38)
[2021-02-10] MEDS: Cholecalciferol (VIT D3) 1,000 unit TAB PO SCH (10:38)
[2021-02-10] MEDS: Empaglifozin 10 mg TAB (NF) PO SCH (11:51)
[2021-02-10] MEDS ORDERED: Piperacillin/Tazobac ADVAN 3.375 GM in NS 0.9% 100 ml BAG 100 ML IV ONE (15:05)
[2021-02-10] MEDS ORDERED: Zosyn per Pharmacy NOTE FOLLOW UP SCH (16:00)
[2021-02-10] MEDS: Thiamine 100 MG/ML 2 ml VIAL 250 MG in NS 0.9% 100 ml BAG 100 ML IV SCH (16:17)
[2021-02-10 16:49] LABS: Calcium 9.3 mg/dL (8.6-10.3); EGFR African American 39.9 (>60); Magnesium 2.8 mg/dL (1.9-2.7); Phosphorus 5.5 mg/dL (2.5-5.0)
[2021-02-10 16:54] LABS: Potassium 5.1 mmol/L (3.5-5.0)
[2021-02-10] MEDS ORDERED: Warfarin - No Order Today **NOTE FOLLOW UP ONE (18:00)
[2021-02-10] MEDS: ZOSYN 3.375 GM Q8H per EXTENDED INFUSION IV SCH (21:06)
[2021-02-11 04:33] LABS: INR 2.57 (0.82-1.09)
[2021-02-11 04:42] LABS: Calcium 8.6 mg/dL (8.6-10.3); EGFR Non-African American 30.6 (>60); Magnesium 2.6 mg/dL (1.9-2.7); Potassium 4.7 mmol/L (3.5-5.0)
[2021-02-11 05:10] LABS: ABS Lymphocytes 0.5 10^3/ul (1.0-4.8); ABS Monocytes 0.9 10^3/ul (0-0.8); ABS Neutrophils 7.8 10^3/ul (1.5-7.7); Hematocrit 38 % (42-52); Hemoglobin 12.8 g/dL (14.0-18.0); Lymphocyte % 5.7 %; Mean Corpuscular HGB Conc 33 g/dL (31-36); Mean Corpuscular Hemoglobin 32 pg (27-31); Mean Corpuscular Volume 98 fL (80-94); Nucleated Red Blood Cells % 0.1; Platelet Count 85 10^3/uL (150-450); Red Blood Count 3.94 10^6 /uL (4.18-5.48); Red Cell Distribution Width 17 % (10-15); White Blood Count 9.1 10^3/uL (3.5-10.8)
[2021-02-11] MEDS: ZOSYN 3.375 GM Q8H per EXTENDED INFUSION IV SCH ×3 (05:17→20:12)
[2021-02-11] MEDS: Pantoprazole VIAL 40 MG VIAL IV SCH (08:20)
[2021-02-11] MEDS: Multivitamins/Minerals TAB PO SCH (08:20)
[2021-02-11 08:48] LABS: Phosphorus 5.8 mg/dL (2.5-5.0)
[2021-02-11] MEDS ORDERED: Lactated Ringers 1000 ml BAG 1,000 ML IV SCH (12:00)
[2021-02-11 14:56] LABS: Albumin/Globulin Ratio 1.3 (1-3); Globulin 2.3 g/dL (2-4); Indirect Bilirubin 0.9 mg/dL (0.3-1.0); Total Bilirubin 1.4 mg/dL (0.2-1.0); Total Protein 5.3 g/dL (6.4-8.9)
[2021-02-11] MEDS: Warfarin DAILY REMINDER **NOTE FOLLOW UP SCH (16:13)
[2021-02-11] MEDS: Thiamine 100 MG/ML 2 ml VIAL 250 MG in NS 0.9% 100 ml BAG 100 ML IV SCH (16:13)
[2021-02-12] MEDS: ZOSYN 3.375 GM Q8H per EXTENDED INFUSION IV SCH ×3 (04:38→20:40)
[2021-02-12 06:32] LABS: Hematocrit 36 % (42-52); Hemoglobin 11.7 g/dL (14.0-18.0); Mean Corpuscular HGB Conc 33 g/dL (31-36); Mean Corpuscular Hemoglobin 32 pg (27-31); Mean Corpuscular Volume 97 fL (80-94); Mean Platelet Volume 9.9 fL (7.4-10.4); Platelet Count 84 10^3/uL (150-450); Red Blood Count 3.67 10^6 /uL (4.18-5.48); Red Cell Distribution Width 17 % (10-15); White Blood Count 7.7 10^3/uL (3.5-10.8)
[2021-02-12 06:47] LABS: Albumin 3.1 g/dL (3.2-5.2); Albumin/Globulin Ratio 1.4 (1-3); Calcium 8.5 mg/dL (8.6-10.3); EGFR African American 42.7 (>60); EGFR Non-African American 35.3 (>60); Globulin 2.2 g/dL (2-4); Magnesium 2.5 mg/dL (1.9-2.7); Phosphorus 3.1 mg/dL (2.5-5.0); Potassium 4.1 mmol/L (3.5-5.0); Total Bilirubin 1.4 mg/dL (0.2-1.0); Total Protein 5.3 g/dL (6.4-8.9)
[2021-02-12] MEDS: Multivitamins/Minerals TAB PO SCH (08:23)
[2021-02-12] MEDS: Pantoprazole VIAL 40 MG VIAL IV SCH (09:15)
[2021-02-12] MEDS: Thiamine 100 MG/ML 2 ml VIAL 250 MG in NS 0.9% 100 ml BAG 100 ML IV SCH (16:07)
[2021-02-12] MEDS ORDERED: Warfarin - No Order Today **NOTE FOLLOW UP ONE (17:00)
[2021-02-12] MEDS: Warfarin DAILY REMINDER **NOTE FOLLOW UP SCH (17:04)
[2021-02-13] MEDS: ZOSYN 3.375 GM Q8H per EXTENDED INFUSION IV SCH ×2 (05:16→11:41)
[2021-02-13 05:45] LABS: INR 3.99 (0.82-1.09)
[2021-02-13 07:39] LABS: ABS Lymphocytes 0.5 10^3/ul (1.0-4.8); ABS Monocytes 0.7 10^3/ul (0-0.8); ABS Neutrophils 5.4 10^3/ul (1.5-7.7); Eosinophil % 0.4 %; Hematocrit 36 % (42-52); Lymphocyte % 7.1 %; Mean Corpuscular HGB Conc 33 g/dL (31-36); Mean Corpuscular Hemoglobin 32 pg (27-31); Mean Corpuscular Volume 97 fL (80-94); Mean Platelet Volume 9.3 fL (7.4-10.4); Nucleated Red Blood Cells % 0.1; Platelet Count 85 10^3/uL (150-450); Red Blood Count 3.73 10^6 /uL (4.18-5.48); Red Cell Distribution Width 17 % (10-15); White Blood Count 6.6 10^3/uL (3.5-10.8)
[2021-02-13 07:52] LABS: Albumin 3.2 g/dL (3.2-5.2); Albumin/Globulin Ratio 1.3 (1-3); Calcium 8.7 mg/dL (8.6-10.3); EGFR African American 53.7 (>60); EGFR Non-African American 44.4 (>60); Globulin 2.5 g/dL (2-4); Magnesium 2.3 mg/dL (1.9-2.7); Total Bilirubin 1.5 mg/dL (0.2-1.0); Total Protein 5.7 g/dL (6.4-8.9)
[2021-02-13] MEDS: Multivitamins/Minerals TAB PO SCH (08:06)
[2021-02-13 08:56] LABS: Phosphorus 2.6 mg/dL (2.5-5.0)
[2021-02-13] MEDS ORDERED: DOBUTamine 2000 MCG/ML IVPREMX 500 MG/250 ML BAG IV SCH (10:00)
[2021-02-13] MEDS ORDERED: Digoxin IV 0.5 MG/2 ML AMP (0.25 MG/ML) IV SLOW PU ONE (10:23)
[2021-02-13] MEDS: Thiamine 100 MG/ML 2 ml VIAL 250 MG in NS 0.9% 100 ml BAG 100 ML IV SCH (15:25)
[2021-02-13] MEDS ORDERED: Warfarin DAILY REMINDER **NOTE FOLLOW UP SCH (17:00)
[2021-02-13] MEDS ORDERED: Warfarin - No Order Today **NOTE FOLLOW UP ONE ×2 (17:00)
[2021-02-13 18:35] VITALS: BP 98/76
[2021-02-13] MEDS ORDERED: LORazepam 2 mg VIAL 1 ml ONE (19:53)
[2021-02-13] MEDS ORDERED: Lorazepam PYXIS KEY ONE (19:53)
[2021-02-13] MEDS ORDERED: Lorazepam PYXIS KEY PRN (20:07)
[2021-02-13] MEDS ORDERED: LORazepam 2 mg VIAL 1 ml IV PUSH PRN (20:07)
[2021-02-14] MEDS ORDERED: Lorazepam PYXIS KEY ONE (00:56)
== END 2021-02-13 19:50 | disposition short-term general hospital (02) | DRG 291 ==
LOC: ED 10:11 → MEDTELE 14:10 → ICU 02-10 11:57
PROVIDERS: ADMIT Hospitalist; ATTEND Surgery Surgical Critical Care